=== PATIENT | male | born 1965 | race Two or more races ===

== ENCOUNTER 2021-07-14 11:37 | Emergency (ER) | payer OTHER ==
[2021-07-14 12:01] LABS: BASOPHIL 1.1 % (0-2); HCT 42.6 % (42.0-52.0); HGB 13.8 g/dl (13.2-18.0); LYMPHOCYTE 36.1 % (15-48); MCH 27.3 pg (25.0-31.0); MCHC 32.4 g/dL (32.0-36.0); MCV 84.2 fL (78.0-100.0); MONOCYTE 7.7 % (0-12); MPV 10.2 fL (6.0-9.5); NEUTROPHIL 51.7 % (41-80); NRBC 0; PLT 167 K/uL (150-400); RBC 5.06 M/uL (4.70-6.00); RDW 13.2 % (11.5-14.0); WBC 4.4 K/uL (4.0-10.5)
[2021-07-14 12:24] LABS: ALBUMIN 3.8 g/dL (3.4-5.0); BILIRUBIN - TOTAL 0.4 mg/dL (0.2-1.0); BUN/CREAT RATIO (CALC) 14.4 RATIO; CREATININE 1.04 mg/dL (0.67-1.17); GLOBULIN (CALCULATION) 3.5 g/dL; MAGNESIUM 1.7 mg/dL (1.8-2.4); POTASSIUM 4.1 mmol/L (3.5-5.1); TOTAL PROTEIN 7.3 g/dL (6.4-8.2)
[2021-07-14 12:37] LABS: INR 1.09 (0.9-1.2); PROTHROMBIN TIME 13.5 SECONDS (11.8-13.4); PTT 32.5 SECONDS (24.4-34.7)
[2021-07-14 13:05] LABS: CORONAVIRUS 2019 SARS-COV-2 NEGATIVE (NEGATIVE); INFLUENZA A NAA NEGATIVE (NEGATIVE)
== END 2021-07-14 17:56 | disposition home or self-care (01) ==
LOC: FER 11:37
PROVIDERS: Emergency Medicine
DX: R07.89 Other chest pain (principal); M25.512 Pain in left shoulder; Z20.822 Contact with and (suspected) exposure to COVID-19
CPT/HCPCS: 36415; 71045; 80053; 83735; 83880; 84484; 85025; 85610; 85730; 93005; U0002